=== PATIENT | male | born 1950 | race African-American/Black ===

== ENCOUNTER 2017-12-30 22:31 | Emergency (ER) | payer SELFPAY ==
[~2017-12-30] VITALS: Ht 177.8 cm; Wt 107.0 kg
[2017-12-30] MEDS ORDERED: VITAMINS PO (22:52)
[2017-12-30] MEDS ORDERED: MAGNESIUM500 MG PO (22:52)
--- NOTE | 2017-12-30 23:12 | Emergency Room Report ---
History of Present Illness General Chief Complaint: Chest Pain Source: Patient Present Illness HPI 67-year-old male, no medical problems, p/w chest pain for one to 2 minutes. Chest pain started while he was resting, sitting down. Localized to substernal area, no radiation to back or other areas, sharp in nature, sudden onset + SOB + palpitations, no diaphoresis, n/v. This is the first occurrence of chest pain. Denies fever, chills, cough, abd pain. Denies trauma. Patient has never had a stress test. Patient has never had a cardiac catheterization. Was a former smoker, quit about 30 years ago. No family history of cardiac disease at a young age. Patient also states that for 2 months he has had intermittent right sided hand numbness and pain. Worse when he bends his wrist. No lower extremity numbness or tingling, no headache no neck pain. No slurred speech Allergies: Coded Allergies: PENICILLINS (Verified Allergy, Unknown, 12/30/17) Patient History Past Medical History: see triage record Past Surgical History: none Pertinent Family History: none Reviewed Nursing Documentation: PMH: Agreed, PSxH: Agreed Nursing Documentation-PMH Past Medical History: No Stated History Review of Systems All Other Systems: negative except mentioned in HPI Physical Exam Vital Signs Date Time Temp Pulse Resp B/P (MAP) Pulse Ox O2 Delivery O2 Flow Rate FiO2 12/30/17 22:44 97.5 76 18 124/81 95 Room Air 97.5 Sp02 EP Interpretation: reviewed, normal General Appearance: normal inspection, well appearing, no apparent distress, alert, GCS 15, non-toxic Head: normocephalic, atraumatic Eyes: bilateral eye normal inspection, bilateral eye PERRL, bilateral eye EOMI ENT: normal ENT inspection, normal pharynx, normal voice, moist mucus membranes Neck: normal inspection, full range of motion, supple Respiratory: normal inspection, lungs clear, normal breath sounds, no respiratory distress, no retraction, no wheezing, speaking full sentences, chest symmetrical Cardiovascular #1: normal inspection, regular rate, rhythm, no edema, normal capillary refill Cardiovascular #2: 2+ radial (R), 2+ radial (L) Gastrointestinal: normal inspection, non tender, soft, non-distended, no guarding Genitourinary: no CVA tenderness Musculoskeletal: other - Right wrist tender along the volar aspect, Phalen test positive, more pain and numbness elicited Neurologic: normal inspection, alert, oriented x3, responsive, motor strength/ tone normal, sensory intact, normal gait, speech normal Psychiatric: normal inspection, judgement/insight normal, memory normal Skin: normal inspection, normal color, no rash, warm/dry, well hydrated, normal turgor Medical Decision Making Diagnostic Impression: Primary Impression: Chest pain Additional Impression: Carpal tunnel syndrome of right wrist ER Course 67-year-old male with chest pain DDX: ACS vs. CHF vs. pneumonia vs. gastritis/GERD vs. pneumothorax PE on differential however at this time there are other more likely diagnoses. Also with a right wrist intermittent numbness, appears to be carpal tunnel syndrome, no concern for stroke given the benign physical and history Plan: IV access, obtain labs including troponin, EKG, CXR ASA ER course: Patient was treated with ASA. Patient has remained on a monitor, HD stable, chest pain improved. labs unremarkable trop neg x 2 no chest pain, sleeping comfortably Disposition: Patient dc home FU with pmd in 1 week, possible outpatient stress test Please note that this Emergency Department Report was dictated using [employer] teacher technology software, occasionally this can lead to erroneous entry secondary to interpretation by the dictation equipment. EKG Diagnostic Results EP Interpretation: Yes Rate: normal Rhythm: NSR ST Segments: No acute changes ASA given to patient: Yes Rhythm Strip EP Interpretation: Yes Rate: 70 Rhythm: NSR, no PVCs, no ectopy Chest X-ray CXR: Ordered: Yes 1 view Indication: Chest pain EP interpretation: Yes Interpretation: No consolidation, no effusion, no PTX, no acute cardiopulmonary disease Impression: No acute disease Electronically signed by Natasha Sneed MD Laboratory Tests Test 12/30/17 23:10 12/30/17 23:45 12/31/17 00:42 White Blood Count 5.2 K/UL (4.8-10.8) Red Blood Count 5.04 M/UL (4.70-6.10) Hemoglobin 13.8 G/DL (14.2-18.0) L Hematocrit 42.2 % (42.0-52.0) Mean Corpuscular Volume 84 FL (80-99) Mean Corpuscular Hemoglobin 27.4 PG (27.0-31.0) Mean Corpuscular Hemoglobin Concent 32.7 G/DL (32.0-36.0) Red Cell Distribution Width 11.6 % (11.6-14.8) Platelet Count 235 K/UL (150-450) Mean Platelet Volume 8.0 FL (6.5-10.1) Neutrophils (%) (Auto) 47.5 % (45.0-75.0) Lymphocytes (%) (Auto) 41.1 % (20.0-45.0) Monocytes (%) (Auto) 9.5 % (1.0-10.0) Eosinophils (%) (Auto) 1.2 % (0.0-3.0) Basophils (%) (Auto) 0.7 % (0.0-2.0) Sodium Level 138 MMOL/L (136-145) Potassium Level 4.0 MMOL/L (3.5-5.1) Chloride Level 103 MMOL/L (98-107) Carbon Dioxide Level 30 MMOL/L (21-32) Anion Gap 5 mmol/L (5-15) Blood Urea Nitrogen 11 mg/dL (7-18) Creatinine 1.1 MG/DL (0.55-1.30) Estimate Glomerular Filtration Rate > 60 mL/min (>60) Glucose Level 116 MG/DL (74-106) H Calcium Level 8.9 MG/DL (8.5-10.1) Total Bilirubin 0.5 MG/DL (0.2-1.0) Aspartate Amino Transferase (AST) 15 U/L (15-37) Alanine Aminotransferase (ALT) 28 U/L (12-78) Alkaline Phosphatase 59 U/L (46-116) Troponin I 0.000 ng/mL (0.000-0.056) 0.000 ng/mL (0.000-0.056) Pro-B-Type Natriuretic Peptide < 5 pg/mL (0-125) Total Protein 7.5 G/DL (6.4-8.2) Albumin 3.8 G/DL (3.4-5.0) Globulin 3.7 g/dL Albumin/Globulin Ratio 1.0 (1.0-2.7) Urine Color Yellow Urine Appearance Clear Urine pH 6.5 (4.5-8.0) Urine Specific [place] 1.015 (1.005-1.035) Urine Protein Negative (NEGATIVE) Urine Glucose (UA) Negative (NEGATIVE) Urine Ketones Negative (NEGATIVE) Urine Occult Blood Negative (NEGATIVE) Urine Nitrite Negative (NEGATIVE) Urine Bilirubin Negative (NEGATIVE) Urine Urobilinogen 1 MG/DL (0.0-1.0) H Urine Leukocyte Esterase Negative (NEGATIVE) Last Vital Signs Date Time Temp Pulse Resp B/P (MAP) Pulse Ox O2 Delivery O2 Flow Rate FiO2 12/30/17 22:44 97.5 76 18 124/81 95 Room Air 97.5 Disposition: HOME, SELF-CARE Condition: Improved Patient Instructions: Nonspecific Chest Pain Natasha Sneed M.D. Dec 30, 2017 23:12
[2017-12-30 23:28] VITALS: BP 131/63
[2017-12-30 23:29] LABS: BASOPHILS % (AUTO) 0.7 % (0.0-2.0); EOSINOPHILS % (AUTO) 1.2 % (0.0-3.0); HEMATOCRIT 42.2 % (42.0-52.0); HEMOGLOBIN 13.8 G/DL (14.2-18.0); LYMPHOCYTES % (AUTO) 41.1 % (20.0-45.0); MEAN CORPUSCULAR VOLUME 84 FL (80-99); MONOCYTES % (AUTO) 9.5 % (1.0-10.0); NEUTROPHILS % (AUTO) 47.5 % (45.0-75.0); PLATELET COUNT 235 K/UL (150-450); RED BLOOD COUNT 5.04 M/UL (4.70-6.10); RED CELL DISTRIBUTION WIDTH 11.6 % (11.6-14.8); WHITE BLOOD COUNT 5.2 K/UL (4.8-10.8)
[2017-12-30 23:37] LABS: ANION GAP 5 mmol/L (5-15); BLOOD UREA NITROGEN 11 mg/dL (7-18); CALCIUM 8.9 MG/DL (8.5-10.1); CARBON DIOXIDE 30 MMOL/L (21-32); CHLORIDE 103 MMOL/L (98-107); CREATININE 1.1 MG/DL (0.55-1.30); SODIUM 138 MMOL/L (136-145)
[2017-12-30 23:48] LABS: ALANINE AMINOTRANSFERASE 28 U/L (12-78); ALBUMIN 3.8 G/DL (3.4-5.0); ALKALINE PHOSPHATASE 59 U/L (46-116); ASPARTATE AMINO TRANSFERASE 15 U/L (15-37); BILIRUBIN,TOTAL 0.5 MG/DL (0.2-1.0)
[2017-12-31 00:04] LABS: APPEARANCE,URINE CLEAR; BILIRUBIN, URINE NEGATIVE (NEGATIVE); GLUCOSE, URINE (UA) NEGATIVE (NEGATIVE); KETONES,URINE NEGATIVE (NEGATIVE); LEUKOCYTE ESTERASE ,URINE NEGATIVE (NEGATIVE); NITRITE,URINE NEGATIVE (NEGATIVE); PH,URINE 6.5 (4.5-8.0); PROTEIN,URINE NEGATIVE (NEGATIVE); UROBILINOGEN,URINE 1 MG/DL (0.0-1.0)
[2017-12-31 00:05] LABS: COLOR,URINE YELLOW
[2017-12-31 01:00] VITALS: BP 128/77
[2017-12-31 03:00] VITALS: BP 124/69
[2017-12-31 03:05] VITALS: BP 124/69
--- NOTE | 2017-12-31 09:22 | Diagnostic Imaging Report ---
Indication: Reason For Exam: PAIN. Technique: XRAY Chest 1v. Comparison: None Findings: The heart is normal in size. The lungs are clear. No pleural fluid. There is atherosclerotic change of the aorta. The bones are unremarkable. Impression: Atherosclerotic change. Otherwise negative chest.
--- NOTE | 2017-12-31 15:53 | Cardiology Report ---
APPROVED REPORT EKG Measurement Heart [id number] Normal sinus rhythm Normal ECG
== END 2017-12-31 03:05 | disposition home or self-care (01) ==
LOC: EMR 12-31 02:20
DX: R07.89 Other chest pain (principal); G56.01 Carpal tunnel syndrome, right upper limb; Z88.0 Allergy status to penicillin
CPT/HCPCS: 36415; 71045; 80053; 81003; 83880; 84484; 85025; 93005; 99283